=== PATIENT | female | born 1945 | race Caucasian/White ===

== ENCOUNTER 2020-06-04 22:31 | Emergency (ER) | payer OTHER ==
[~2020-06-04] VITALS: Ht 157.5 cm; Wt 76.7 kg
[~2020-06-04 22:31] MED LIST: ARICEPT 5 MG TAB5 MG PO; ASPIR 8181 MG PO; BENTYL 20 MG TA20 M1 PO; BIOTIN-D1 GM MC; CARDIZEM CD180 MG PO; CIPRO500 MG PO; CIPROFLOXACIN500 M1 PO; CO Q-10100 MG PO; COZAAR 50 MG TA50 M2 PO; CYMBALTA30 MG PO; DIAZEPAM 5 MG5 M1 PO; FISH OIL 1,001000 M2 PO; FLAGYL500 MG PO; FOLIC ACID1 MG PO; FOSAMAX 70 MG T70 MG PO; HYDROCHLOROTHIA25 M2 PO; IMITREX 50 MG T50 MG PO; KLOR-CON 1010 MEQ PO; LASIX 40 MG TAB40 M2 PO; LEVOTHYROXIN0.075 MG PO; LIPITOR 20 MG T20 M1 PO; MAXZIDE-25 MG1 EACH PO; METFORMIN HCL500 MG PO; METHOTREXATE 22.5 MG PO; NEURONTIN 300300 M1 PO; NEURONTIN600 MG PO; NITROGLYCERIN0.4 MG SUBLING; OTEZLA30 MG PO; RANEXA500 MG PO; RESTASIS1 EACH OPHTHALMIC; ROBAXIN 750 MG750 M1 PO; SUPER B-50 COM1 EACH PO; VITAMIN D5000 UNIT PO
[2020-06-04] MEDS ORDERED: TOPROL XL25 MG PO (23:02)
[2020-06-04] MEDS ORDERED: ENTOCORT EC 3 MG3 MG PO (23:02)
[2020-06-04] MEDS ORDERED: CALCIUM CARBON500 MG PO (23:03)
[2020-06-04] MEDS ORDERED: BUSPIRONE HCL10 MG PO (23:03)
[2020-06-04] MEDS ORDERED: ACID REDUCER20 MG PO (23:04)
[2020-06-04] MEDS ORDERED: CHOLESTYRAMINE L4 GM PO (23:04)
[2020-06-04 23:05] LABS: ABSOLUTE BASOPHILS 0.1 thou/uL (0.0-0.2); ABSOLUTE EOSINOPHILS 0.3 thou/uL (0.0-0.7); ABSOLUTE MONOCYTES 0.8 thou/uL (0.0-1.2); ABSOLUTE NEUTROPHILS 6.5 thou/uL (1.6-8.1); BASOPHILS 1.1 %; EOSINOPHILS 3.2 %; HEMATOCRIT 35.6 % (37.0-47.0); HEMOGLOBIN 11.3 gm/dL (12.0-15.0); LYMPHOCYTES 27.6 %; MCH 27.7 pg (26.0-34.0); MCHC 31.7 g/dL (28.0-37.0); MCV 87.3 fL (80.0-100.0); MONOCYTES 7.3 %; MPV 8.3 fl. (7.2-11.1); NUCLEATED RBCS 0 /100WBC; PLATELET COUNT* 324 thou/uL (150-400); POLYS 60.8 %; RBC 4.08 mil/uL (4.20-5.00); RDW-CV 15.6 % (10.5-14.5); WBC 10.7 thou/uL (4.0-11.0)
[2020-06-04] MEDS ORDERED: LEVO-T75 MCG PO (23:05)
[2020-06-04] MEDS ORDERED: LISINOPRIL10 MG PO (23:05)
[2020-06-04] MEDS ORDERED: GABAPENTIN600 M1 PO (23:05)
[2020-06-04] MEDS ORDERED: NAMENDA 5 MG TAB5 M1 PO (23:06)
[2020-06-04] MEDS ORDERED: EFFIENT10 MG PO (23:06)
[2020-06-04] MEDS ORDERED: ROSUVASTATIN CA10 MG PO (23:06)
[2020-06-04] MEDS ORDERED: CARAFATE1 GM PO (23:06)
[2020-06-04] MEDS ORDERED: ZONEGRAN100 MG PO (23:07)
[2020-06-04 23:11] LABS: CALCIUM 9.1 mg/dL (8.5-10.1); CREATININE 1.1 mg/dL (0.6-1.3); POTASSIUM 3.8 mmol/L (3.5-5.1)
[2020-06-04] MEDS ORDERED: ZOFRAN ODT4 MG PO (23:54)
[2020-06-04] MEDS ORDERED: PERCOCET 5-3251 EACH PO (23:54)
[2020-06-05 00:20] VITALS: BP 122/59
== END 2020-06-05 00:20 | disposition home or self-care (01) ==
LOC: M.ERS 22:31
PROVIDERS: Emergency Medicine
DX: S42.292A Other displaced fracture of upper end of left humerus, initial encounter for closed fracture (principal); S05.12XA Contusion of eyeball and orbital tissues, left eye, initial encounter; I10 Essential (primary) hypertension; E78.00 Pure hypercholesterolemia, unspecified; M79.7 Fibromyalgia; M19.90 Unspecified osteoarthritis, unspecified site; Z88.0 Allergy status to penicillin; Z88.6 Allergy status to analgesic agent; Z88.8 Allergy status to other drugs, medicaments and biological substances; Z88.2 Allergy status to sulfonamides; W18.39XA Other fall on same level, initial encounter; Y93.89 Activity, other specified; Y92.89 Other specified places as the place of occurrence of the external cause; Y99.8 Other external cause status